=== PATIENT | female | born 1940 | race Caucasian/White ===

== ENCOUNTER → 2016-09-02 | Outpatient (CLI) | payer BC ==
[~2016-09-02] MED LIST: ASPI81TA28 PO; ESTR0.3T PO; FENO67CA2 PO; MULT-190 PO; PROG100C6 PO
[2016-09-02 10:56] LABS: BASO % 0.5 %; BASO ABS # 0.03 K/uL (0-0.2); COMPLETE YES; EOS % 4.1 %; HEMATOCRIT 44.7 % (37-47); IG% 0.2 %; LYMPH % 29.8 %; LYMPH ABS # 1.97 K/uL (1.2-3.4); MEAN CELL VOLUME 97.4 fL (80-100); MEAN CORPUSCULAR HEMOGLOBIN 32.5 pg (25-34); MEAN CORPUSCULAR HGB CONC 33.3 g/dl (32-36); MEAN PLATELET VOLUME 9.9 fL (7.4-10.4); MONO % 7.6 %; NEUT % 57.8 %; PLATELET COUNT 387 K/uL (130-400); RED BLOOD COUNT 4.59 M/uL (4.2-5.4); WHITE BLOOD COUNT 6.62 K/uL (4.8-10.8)
[2016-09-02 11:05] LABS: ALT/SGPT 32 U/L (12-78); AST/SGOT 23 U/L (15-37); BLOOD UREA NITROGEN 10 mg/dl (7-18); BUN/CREATININE RATIO 14.9 (10-20); CALCIUM 9.2 mg/dl (8.5-10.1); CARBON DIOXIDE 30 mmol/L (21-32); CHLORIDE 100 mmol/L (98-107); CREATININE 0.64 mg/dl (0.60-1.20); GLUCOSE 93 mg/dl (70-99); POTASSIUM 4.1 mmol/L (3.5-5.1); SODIUM 135 mmol/L (136-145)
[2016-09-02 11:07] LABS: ALKALINE PHOSPHATASE 104 U/L (45-117); CHOLESTEROL 285 mg/dl (0-200); CHOLESTEROL/HDL RATIO 2.7; HDL CHOLESTEROL 105 mg/dl; LDL CHOLESTEROL CALCULATED 140 mg/dl; TRIGLYCERIDES 198 mg/dl (0-150); VERY LOW DENSITY LIPOPROT CALC 40 mg/dl
== END | disposition home or self-care (01) ==
LOC: C.LABBC 08:24
PROVIDERS: ATTEND Family Medicine
DX: N95.1 Menopausal and female climacteric states (principal); E55.9 Vitamin D deficiency, unspecified; E78.5 Hyperlipidemia, unspecified

== ENCOUNTER → 2016-10-27 | Outpatient (CLI) | payer BC ==
--- NOTE | 2016-10-27 15:18 | MAMMOGRAPHY REPORT ---
BILATERAL DIGITAL SCREENING MAMMOGRAM WITH CAD: 10/27/2016 CLINICAL HISTORY: Routine screening. Patient has no complaints. TECHNIQUE: Bilateral CC and MLO views were obtained. Current study was also evaluated with a Compute r Aided Detection (CAD) system. COMPARISON: Comparison is made to exams dated: 10/25/2015 mammogram, 10/17/2014 mammogram, 10/07/2012 u ltrasound, 10/07/2012 mammogram, 10/02/2011 mammogram - [facility], and 01/25/2008. BREAST COMPOSITION: There are scattered areas of fibroglandular density in both breasts. FINDINGS: There are a few stable benign-appearing calcifications and punctate microcalcifications in the breasts. Mild vascular calcification. No suspicious mass, architectural distortion or cluster o f suspicious microcalcifications is seen. IMPRESSION: ACR BI-RADS CATEGORY 1: NEGATIVE There is no mammographic evidence of malignancy. A 1 year screening mammogram is recommended. The pa tient will receive written notification of the results. Approximately 10% of breast cancers are not detected with mammography. A negative mammographic report should not delay biopsy if a clinically suggestive mass is present. Mary Will M.D. ay/:10/27/2016 12:49:27 It Technician: Teena ROQUE(R)(M), [facility] letter sent: Normal 1/2 BI-RADS Code: ACR BI-RADS Category 1: Negative
== END | disposition home or self-care (01) ==
LOC: C.MAMM 10:29
PROVIDERS: ATTEND Physician Assistant Medical
DX: Z12.31 Encounter for screening mammogram for malignant neoplasm of breast (principal)

== ENCOUNTER → 2017-09-04 | Outpatient (CLI) | payer BC ==
[2017-09-04 10:48] LABS: BLOOD UREA NITROGEN 8 mg/dl (7-18); CREATININE 0.68 mg/dl (0.60-1.20); GLUCOSE 90 mg/dl (70-99)
[2017-09-04 10:49] LABS: ALBUMIN 3.6 gm/dl (3.4-5.0); ALT/SGPT 20 U/L (12-78); AST/SGOT 19 U/L (15-37); CALCIUM 8.8 mg/dl (8.5-10.1); CARBON DIOXIDE 30 mmol/L (21-32); CHOLESTEROL 228 mg/dl (0-200); POTASSIUM 4.2 mmol/L (3.5-5.1); SODIUM 135 mmol/L (136-145)
[2017-09-04 10:52] LABS: ALKALINE PHOSPHATASE 72 U/L (45-117); LDL CHOLESTEROL CALCULATED 108 mg/dl; TOTAL PROTEIN 6.9 gm/dl (6.4-8.2)
== END | disposition home or self-care (01) ==
LOC: C.LABBC 08:11
PROVIDERS: ATTEND Nurse Practitioner Adult Health
DX: E78.5 Hyperlipidemia, unspecified (principal); E55.9 Vitamin D deficiency, unspecified

== ENCOUNTER → 2017-11-27 | Outpatient (CLI) | payer BC ==
--- NOTE | 2017-11-27 14:36 | MAMMOGRAPHY REPORT ---
UNILATERAL RIGHT DIGITAL DIAGNOSTIC MAMMOGRAM TOMOSYNTHESIS AND TARGETED LEFT ULTRASOUND: 11/27/2017 CLINICAL HISTORY: Callback from screening mammogram for possible right breast architectural distortio n and left breast mass. Left mass. TECHNIQUE: The study was acquired using full field digital technology and interpreted from soft copy. Breast tomosynthesis in addition to standard 2D mammography was performed. Spot compression right c c and focal right XCCL 2D and tomosynthesis images were obtained. COMPARISON: Comparison is made to exams dated: 11/06/2017 mammogram, 10/27/2016 mammogram, 10/25/2015 ma mmogram, 10/17/2014 mammogram, and 10/07/2012 mammogram - [facility]. BREAST COMPOSITION: There are scattered areas of fibroglandular density in right breast. FINDINGS: The previously described possible architectural distortion within the right lateral posterior breast seen on the CC view effaces on the additional images. Normal fibroglandular tissue is seen in this r egion, without evidence of a suspicious mass, architectural distortion, or other suspicious finding. Targeted ultrasound was performed of the left upper outer quadrant to evaluate the partially circumsc ribed 16 mm mass seen within the left upper outer quadrant on recent screening mammogram. In the lef t 2:00 breast, approximately 4 cm from the nipple, there is a circumscribed anechoic mass with vending service technician ior acoustic enhancement which measures 1.6 x 0.7 x 1.1 cm. This corresponds with the mammographic m ass and is consistent with a benign cyst. IMPRESSION: ACR BI-RADS CATEGORY 2: BENIGN, ULTRASOUND ACR BI-RADS CATEGORY 2: BENIGN 1. No persistent architectural distortion seen within the right breast on the additional views. Fin dings are benign and compatible with normal fibroglandular tissue. 2. Benign 1.6 cm cyst in the left 2:00 breast on ultrasound, which corresponds with the partially ci rcumscribed mammographic mass. There is no mammographic or sonographic evidence of malignancy. A 1 year screening mammogram is recom mended.(11/28/2018) The patient has been verbally notified of the results. Some breast cancers are not detected with mammography. A negative mammographic report should not oren y biopsy if a clinically suggestive mass is present. Jayla Brooke M.D. /:11/27/2017 09:19:01 K 12 Principal: Teena Taylor RT(R)(M), [facility] letter sent: Normal 04/28 OVERALL STUDY BIRADS: 2 Benign
== END | disposition home or self-care (01) ==
LOC: C.MAMM 08:45
PROVIDERS: ATTEND Nurse Practitioner Adult Health
DX: N63.20 Unspecified lump in the left breast, unspecified quadrant (principal); N64.89 Other specified disorders of breast

== ENCOUNTER 2023-06-02 11:50 | Inpatient (IN) ==
[2023-06-02 12:30] LABS: Basophils # (auto) 0.03 K/uL (0.00-0.20); Basophils % (auto) 0.4 %; Eosinophils # (auto) 0.18 K/uL (0.00-0.50); Eosinophils % (auto) 2.4 %; Hematocrit (blood only) 44.3 % (37.0-47.0); Hemoglobin 14.9 g/dl (12.0-16.0); Immature Granulocytes # (auto) 0.02 K/uL (0.01-0.20); Immature Granulocytes % (auto) 0.3 %; Lymphocytes # (auto) 2.32 K/uL (1.20-3.40); Lymphocytes % (auto) 31.2 %; Mean Corpuscular Hemoglobin 31.6 pg (25.0-34.0); Mean Corpuscular Hgb Conc 33.6 g/dL (32.0-36.0); Mean Corpuscular Volume 94.1 fL (80.0-100.0); Mean Platelet Volume 9.3 fL (9.4-12.4); Monocytes # (auto) 0.54 K/uL (0.11-0.59); Monocytes % (auto) 7.3 %; Neutrophils # (auto) 4.34 K/uL (1.40-6.50); Neutrophils % (auto) 58.4 %; Platelet Count 349 K/uL (130-400); RDW Coefficient of Variation 12.6 % (11.5-14.5); RDW Standard Deviation 43.8 fL (36.4-46.3); Red Blood Count 4.71 M/uL (4.20-5.40); White Blood Count 7.43 K/ul (4.8-10.8)
--- NOTE | 2023-06-02 12:40 | XRay Report ---
XR chest 1V not portable CLINICAL HISTORY: Chest pain, nonspecific COMPARISON STUDY: No previous studies for comparison. FINDINGS: Lung volumes are normal. Lungs are clear. There is no pneumothorax or pleural effusion. Car diac size is normal. Mediastinal contours are normal. There is no evidence for pulmonary edema. IMPRESSION: No acute cardiopulmonary findings. ACT 112: Negative or not required by law. Electronically signed by: Alex Cross M.D. 06/02/2023 12:39 PM
[2023-06-02 12:49] LABS: Albumin Globulin Ratio 1.4 (0.9-2); Albumin Level 4.1 gm/dl (3.4-5.0); BUN Creatinine Ratio 20.3 (10-20); Bilirubin,Total 0.5 mg/dl (0.2-1.0); Calcium 9.7 mg/dl (8.6-10.3); Creatinine Clr Calc Pharmacy 55.8 ml/min; Est GFR (African American) 92.6 ml/min; Est GFR (Non-African American) 79.9 ml/min; Potassium 4.1 mmol/L (3.5-5.1); Total Protein 7.1 gm/dl (6.0-8.3)
[2023-06-02 13:00] LABS: INR 0.9 (0.9-1.1); Partial Thromboplastin Ratio 0.9; Partial Thromboplastin Time 25 Seconds (21-31); Prothrombin Time 10.3 Seconds (9.0-12.0)
[2023-06-02 13:01] LABS: Troponin I High Sensitivity 66.6 pg/ml (0-14)
[2023-06-02] MEDS: OPTIRAY 320 125ml IV ONE (13:50)
--- NOTE | 2023-06-02 14:07 | CT Scan Report ---
CT head/brain wo con CLINICAL HISTORY: 83 years-old Female with dizzy, htn, nolen. Acute headache with dizziness TECHNIQUE: Multiple axial CT images of the head were obtained without contrast. A dose lowering tech nique was utilized adhering to the principles of ALARA. COMPARISON: CTA head and neck same day FINDINGS: No acute intracranial hemorrhage, midline shift, intracranial mass, hydrocephalus, territorial ischem ia or abnormal extra-axial collection. Involutional changes with chronic microvascular ischemic disea se. The calvarium is intact. The paranasal sinuses, mastoid air cells, and middle ear cavities are clear . IMPRESSION: No acute intracranial abnormality. ACT 112: Negative or not required by law. The above report was generated using voice recognition software. It may contain grammatical, syntax o r spelling errors. Electronically signed by: Leodan Verma M.D. 06/02/2023 2:05 PM
[2023-06-02] MEDS: SODIUM CHLORIDE 0.9% 1,000 ML IV SCH (14:16)
--- NOTE | 2023-06-02 14:18 | CT Scan Report ---
HEAD & NECK CTA HISTORY: dizzy, htn, headache TECHNIQUE: Multiaxial CT images of the head were performed following the intravenous administration o f contrast to evaluate the major cerebral vessels. Multiaxial CT images of the neck were also perform ed following the intravenous administration of contrast to evaluate the major cervical vessels. 3D/IN P images were also obtained. Sagittal and coronal reformats were reviewed. A dose lowering technique was utilized adhering to the principles of ALARA. COMPARISON: None. FINDINGS: Visualized intracranial internal carotid arteries, distal vertebral arteries, and basilar artery are widely patent. There is no significant stenosis, occlusion, or aneurysm seen within the bilateral ALINA s, MCAs, or left SPECIAL INVESTIGATION UNIT INVESTIGATOR. Hypoplastic distal right vertebral artery. There is a persistent right posterio r circulation. Mild to moderate multifocal narrowing within the right posterior to indicate art george with an abrupt occlusion within the mid P2 segment of the right SPECIAL INVESTIGATION UNIT INVESTIGATOR.. The major dural venous sinu ses are patent. The aortic arch and proximal great vessels are widely patent. There is no significant stenosis, occ lusion, or dissection identified within the bilateral common carotid, internal carotid, or vertebral arteries. Mild calcified plaque within the bilateral carotid bifurcations. There is a hypoplastic rig ht vertebral artery. IMPRESSION: 1. An abrupt occlusion within the mid P2 segment of the right SPECIAL INVESTIGATION UNIT INVESTIGATOR. This is age indeterminate but coul d represent an acute right SPECIAL INVESTIGATION UNIT INVESTIGATOR territory infarct. Clinical correlation recommended. 2. No significant stenosis, occlusion, or dissection identified within the carotid or vertebral arter ies. ACT 112: Negative or not required by law. Electronically signed by: Darrin Mc M.D. 06/02/2023 2:17 PM
--- NOTE | 2023-06-02 14:18 | CT Scan Report ---
HEAD & NECK CTA HISTORY: dizzy, htn, headache TECHNIQUE: Multiaxial CT images of the head were performed following the intravenous administration o f contrast to evaluate the major cerebral vessels. Multiaxial CT images of the neck were also perform ed following the intravenous administration of contrast to evaluate the major cervical vessels. 3D/[place] P images were also obtained. Sagittal and coronal reformats were reviewed. A dose lowering technique was utilized adhering to the principles of ALARA. COMPARISON: None. FINDINGS: Visualized intracranial internal carotid arteries, distal vertebral arteries, and basilar artery are widely patent. There is no significant stenosis, occlusion, or aneurysm seen within the bilateral ALINA s, MCAs, or left COMMERCIAL FISHERMAN. Hypoplastic distal right vertebral artery. There is a persistent right posterio r circulation. Mild to moderate multifocal narrowing within the right posterior to indicate art george with an abrupt occlusion within the mid P2 segment of the right COMMERCIAL FISHERMAN.. The major dural venous sinu ses are patent. The aortic arch and proximal great vessels are widely patent. There is no significant stenosis, occ lusion, or dissection identified within the bilateral common carotid, internal carotid, or vertebral arteries. Mild calcified plaque within the bilateral carotid bifurcations. There is a hypoplastic rig ht vertebral artery. IMPRESSION: 1. An abrupt occlusion within the mid P2 segment of the right COMMERCIAL FISHERMAN. This is age indeterminate but coul d represent an acute right COMMERCIAL FISHERMAN territory infarct. Clinical correlation recommended. 2. No significant stenosis, occlusion, or dissection identified within the carotid or vertebral arter ies. ACT 112: Negative or not required by law. Electronically signed by: Darrin Mc M.D. 06/02/2023 2:17 PM
--- NOTE | 2023-06-02 14:36 | Electrocardiogram Report ---
Test Reason : Blood Pressure : / mmHG Vent. Rate : 089 BPM Atrial Rate : 089 BPM P-R Int : 138 ms QRS Dur : 080 ms QT Int : 328 ms P-R-T Axes : 049 -06 258 degrees QTc Int : 399 ms Sinus rhythm with Premature atrial complexes with Aberrant conduction Left atrial enlargement Left ventricular hypertrophy with repolarization abnormality Abnormal ECG No previous ECGs available Confirmed by Pramod Dimas ([id number]) on 06/02/2023 2:36:17 PM Referred By: Confirmed By:Pramod Dimas
--- NOTE | 2023-06-02 14:40 | Emergency Department Note ---
Impression & Plan Dizziness, Acute CVA (cerebrovascular accident), Hyperglycemia, Elevated troponin ED Provider Note ED Provider Note NAME: MAYKEL LAWSON AGE:83 SEX: Female : 1940 ARRIVES VIA: private vehicle INFORMANT: Patient ED PROVIDER(s): Lois Zaidi DO CHIEF COMPLAINT: Dizziness HPI: This is an 83-year-old female who presents emergency department due to abrupt onset of dizziness at around 10 AM this morning. Patient states she did have a few milder episodes of vertigo last week and does have prior history of vertigo. She states she did use an Radha maneuver that she knows how to do at home last week with some improvement. She states she got up this morning and was feeling well, ate and took normal medications and was walking around her condo when she suddenly became acutely dizzy. She states she was able to sit down on a chair to prevent falling. She denies any coming headaches, vision changes, tinnitus, chest pain, palpitations, shortness of breath, nausea or vomiting. She denies any recent fevers, chills, or recent illness. She denies any change in urine or stools. She denies any change in medications. She states after sitting there a while her dizziness did mostly improve although she still does not feel totally resolved. PAST MEDICAL HISTORY:See Below PAST SURGICAL HISTORY:See Below FAMILY HISTORY:See Below SOCIAL HISTORY:See Below HOME MEDICATIONS:See Below ALLERGIES:See Below VITALS:See Below PHYSICAL EXAMINATION: GENERAL: alert, well appearing, well nourished, no distress, non-toxic EYE EXAM: normal conjunctiva, PERRL and EOM's grossly intact, no nystagmus OROPHARYNX: no exudate, no erythema, lips, buccal mucosa, and tongue normal and mucous membranes are moist NECK: supple, no nuchal rigidity, no adenopathy, non-tender LUNGS: Clear to auscultation. Normal chest wall mechanics, no w/r/r HEART: no murmurs, S1 normal and S2 normal ABDOMEN: abdomen soft, non-tender, normo-active bowel sounds, no masses, no rebound or guarding. BACK: Back is symmetrical on inspection and there is no deformity, no midline tenderness, no CVA tenderness. SKIN: no rashes, petechiae, orbruising UPPER EXTREMITIES: upper extremities are grossly normal. FROM, nml pulses b/l. LOWER EXTREMITIES: No pitting edema. FROM, nml pulses b/l. NEURO EXAM: Normal sensorium, cranial nerves II-XII grossly intact, normal speech, no facial droop,nogross weakness of arms, no gross weakness of legs. Gross sensation intact. No ataxia. NIHSS 0. Vital Signs: reviewed and remarkable Differential Diagnosis: benign positional vertigo, dehydration, hypovolemia, anemia, tumor, hypoglycemia, electrolyte abnormalities, ICH, CVA, dysrhythmia, as well as others were entertained. MEDICAL DECISION MAKING: This is an 83-year-old female presents emergency department after abrupt onset of severe dizziness this morning while at home. No accompanying trauma, she had no other complaints or concurrent symptoms. Her symptoms were almost entirely resolved by the time of presentation to the emergency room. Labs drawn and sent, IV established, EKG and chest x-ray performed bedside interpreted by me and patient sent for CT/CTA due to advanced age and reported symptoms. Patient found to have hyperglycemia, new compared to prior and no prior diagnosis of diabetes. Patient also found to have an elevated troponin and abnormal EKG despite no complaints of chest pain, shortness of breath, or palpitations. CT angiography showed likely acute right ELECTRONICS MAINTENANCE TECHNICIAN infarct. Patient did have recent episodes of vertigo last week and does have prior history of vertigo it seems today was more severe and atypical. No prior documentation of stroke and patient denies any knowledge of prior stroke. I did contact on-call [facility] who did a bedside evaluation utilizing the stroke cart. I also discussed the case with the [facility] hospitalist team. The neurologist did recontact to provide their additional input which was relayed to the hospitalist at that time. Patient was noted to be hypertensive here although did have some fluctuation in her blood pressure. We did discuss blood pressure parameters. Patient updated on all results and need for additional inpatient evaluation, she verbalized understanding was in agreement. Consultation(s): 5910: Discussed with Dr. Rajan, [facility], he will review the images and perform a bedside evaluation utilizing the cart. 151: Discussed with Dr. Das, [facility] hospitalist, for additional evaluation and mgmt. 1626: Discussed with Dr. Rajan again. Unclear for acute CVA. No indication for TNK and not amenable to additional interventions at this time. Recommends additional inpatient evaluation including additional labs, TTE and MRI as well as permissive hypertension today. Recommend starting aspirin 325 mg today and then to be continued on 81 mg daily. This was discussed with the hospitalist additionally. ER Treatment Provided: See below Diagnostics Interpreted By Me: -ECG: Normal sinus at 89, normal axis, normal intervals, PACs noted, ST depression noted in 1, 2, and V6 with T wave inversions in lead III, aVF, and V6 -Cardiac Monitoring: An order was placed for continuous cardiac monitoring. The monitor shows a rate of 76 with normal sinus rhythm. -Laboratory studies: As stated above and show below. -Imaging studies: X-ray Chest: A single view study of the chest was reviewed and was negative for cardiomegaly, focal infiltrate, effusion, pulmonary edema, or wide mediastinum. Triage Nursing Note Reviewed Prior/Outside Records Reviewed -prior PCP office visit reviewed Critical care: Critical care of 48 min performed to assess and manage high likelihood of life- threatening CVA, involving labs and imaging performed with assessment to evaluate dizziness diagnosis with frequent reassessment. This time includes bedside time, treatment discussions with patient/family/consultants, documentation time and excludes procedure time. Past Med/Surg History Surgical History History of endoscopy History of colonoscopy History of oral surgery History of breast lump/mass excision right Family History Mother Myocardial infarction Father Myocardial infarction Brother Myocardial infarction Denies family history of Ovarian cancer Prostate cancer Breast cancer Colorectal cancer Social History Smoking Status: Never smoker Tobacco Type: Cigarettes packs per day: 1; Second Hand Exposure: No; Do You Dip or Chew Tobacco: No; Hx Alcohol Use: Yes Alcohol type: wine and hard liquor Alcohol Intake Frequency: 4 or More x per/Week Hx Substance Use: No Preferred Language: Malay Communication Ability: Effective marital status: / Current Living Situation: Alone current occupational status: retired How many Children do You have: 2 Feels Safe at Home: Yes Childhood Exposure to Second-Hand Smoke: No caffeine: Yes (1 cup of coffee) Dental Care, Regularly: Yes Physical Activity Frequency: 3-4 Times per Week Seatbelt Use: always Sunscreen Use: Yes Allergies Allergies Allergy/AdvReac Type Severity Reaction Status Date / Time bacitracin Allergy Unknown RED RASH Verified 02/13/23 09:29 polymyxin B Allergy Unknown RED RASH Verified 02/13/23 09:29 pads AdvReac Mild Rash Uncoded 02/13/23 09:29 Home Meds Home Medications Medication Instructions Recorded Confirmed cholecalciferol (vitamin D3) 50 50 mcg PO DAILY 02/12/22 06/02/23 mcg (2,000 unit) capsule levomefolate 500 mcg-niacinamide 1 tab PO DAILY 02/12/22 06/02/23 750 [id number]-Fj-selen-chrom tablet (Nicotinamide (with chromium)) propylene glycol 0.6 % eye drops 1 drp ophthalmic (eye) DAILY PRN 02/13/23 06/02/23 (Systane Balance) Dry Eye(S) Previous Rx's Medication Instructions Recorded losartan 25 mg tablet 25 mg PO DAILY #90 tabs 02/13/23 Results & Data (ED) Vital Signs Vital Signs - 24 hr 06/02/23 12:00 06/02/23 13:20 06/02/23 13:20 Temperature 36.7 C Temperature Source Temporal Artery Scan Pulse Rate 91 H Pulse Rate from SpO2 Sensor Respiratory Rate 16 Respiratory Effort / Characteristics Non-Labored Spontaneous Respiratory Depth Normal Respiratory Pattern Regular Blood Pressure 183/115 H Blood Pressure Mean 137 Blood Pressure Position Sitting Pulse Oximetry 97 Oxygen Delivery Method Room Air Room Air Room Air Sepsis Recent Fever Within 48 Hours No Sepsis New/Unexplained Change in Mental Status N/A Sepsis Action Taken by Nursing No Action Required 06/02/23 13:20 06/02/23 13:28 06/02/23 13:30 Temperature Temperature Source Pulse Rate 77 Pulse Rate from SpO2 Sensor 75 Respiratory Rate 15 Respiratory Effort / Characteristics Respiratory Depth Respiratory Pattern Blood Pressure 201/96 H Blood Pressure Mean 131 Blood Pressure Position Pulse Oximetry 97 Oxygen Delivery Method Room Air Sepsis Recent Fever Within 48 Hours Sepsis New/Unexplained Change in Mental Status Sepsis Action Taken by Nursing 06/02/23 13:30 06/02/23 13:32 06/02/23 13:57 Temperature Temperature Source Pulse Rate 75 74 Pulse Rate from SpO2 Sensor 75 Respiratory Rate 16 Respiratory Effort / Characteristics Respiratory Depth Respiratory Pattern Blood Pressure 189/116 H Blood Pressure Mean 145 Blood Pressure Position Pulse Oximetry 97 Oxygen Delivery Method Sepsis Recent Fever Within 48 Hours Sepsis New/Unexplained Change in Mental Status Sepsis Action Taken by Nursing 06/02/23 13:57 06/02/23 14:00 06/02/23 14:00 Temperature Temperature Source Pulse Rate 86 83 Pulse Rate from SpO2 Sensor Respiratory Rate 23 9 L Respiratory Effort / Characteristics Respiratory Depth Respiratory Pattern Blood Pressure 174/95 H Blood Pressure Mean 133 Blood Pressure Position Pulse Oximetry Oxygen Delivery Method Sepsis Recent Fever Within 48 Hours Sepsis New/Unexplained Change in Mental Status Sepsis Action Taken by Nursing 06/02/23 14:37 06/02/23 14:37 06/02/23 15:00 Temperature Temperature Source Pulse Rate 83 80 Pulse Rate from SpO2 Sensor 86 81 Respiratory Rate 10 L 13 Respiratory Effort / Characteristics Respiratory Depth Respiratory Pattern Blood Pressure 191/81 H Blood Pressure Mean 99 Blood Pressure Position Pulse Oximetry 98 95 Oxygen Delivery Method Room Air Room Air Sepsis Recent Fever Within 48 Hours Sepsis New/Unexplained Change in Mental Status Sepsis Action Taken by Nursing 06/02/23 15:00 06/02/23 15:30 06/02/23 15:31 Temperature Temperature Source Pulse Rate Pulse Rate from SpO2 Sensor 98 H 96 H Respiratory Rate Respiratory Effort / Characteristics Respiratory Depth Respiratory Pattern Blood Pressure 164/110 H Blood Pressure Mean 118 Blood Pressure Position Pulse Oximetry 97 98 Oxygen Delivery Method Room Air Room Air Sepsis Recent Fever Within 48 Hours Sepsis New/Unexplained Change in Mental Status Sepsis Action Taken by Nursing 06/02/23 15:31 06/02/23 15:36 06/02/23 15:36 Temperature Temperature Source Pulse Rate Pulse Rate from SpO2 Sensor 78 Respiratory Rate Respiratory Effort / Characteristics Respiratory Depth Respiratory Pattern Blood Pressure 207/114 H 219/94 H Blood Pressure Mean 138 126 Blood Pressure Position Pulse Oximetry 97 Oxygen Delivery Method Room Air Sepsis Recent Fever Within 48 Hours Sepsis New/Unexplained Change in Mental Status Sepsis Action Taken by Nursing Laboratory Data 06/02/23 12:08 06/02/23 12:08 Lab Results 06/02/23 06/02/23 Range/Units 12:08 14:08 WBC 7.43 (4.8-10.8) K/ul RBC 4.71 (4.20-5.40) M/uL Hgb 14.9 (12.0-16.0) g/dl Hct 44.3 (37.0-47.0) % MCV 94.1 (80.0-100.0) fL MCH 31.6 (25.0-34.0) pg MCHC 33.6 (32.0-36.0) g/dL RDW Std Deviation 43.8 (36.4-46.3) fL RDW Coeff of Cristian 12.6 (11.5-14.5) % Plt Count 349 (130-400) K/uL MPV 9.3 L (9.4-12.4) fL Immature Gran % (Auto) 0.3 % Neut % (Auto) 58.4 % Lymph % (Auto) 31.2 % [place] % (Auto) 7.3 % Eos % (Auto) 2.4 % Baso % (Auto) 0.4 % Neut # (Auto) 4.34 (1.40-6.50) K/uL Lymph # (Auto) 2.32 (1.20-3.40) K/uL [place] # (Auto) 0.54 (0.11-0.59) K/uL Eos # (Auto) 0.18 (0.00-0.50) K/uL Baso # (Auto) 0.03 (0.00-0.20) K/uL Immature Gran # (Auto) 0.02 (0.01-0.20) K/uL PT 10.3 (9.0-12.0) Seconds INR 0.9 (0.9-1.1) APTT 25 (21-31) Seconds PTT Ratio 0.9 Sodium 134 L (136-145) mmol/L Potassium 4.1 (3.5-5.1) mmol/L Chloride 98 (98-107) mmol/L Carbon Dioxide 28 (21-32) mmol/L Anion Gap 8 (3-11) BUN 14 (6-23) mg/dl Creatinine 0.69 (0.6-1.2) mg/dl Est Cr Clr Drug Dosing 55.8 ml/min Est GFR ( Amer) 92.6 ml/min Est GFR (Non-Af Amer) 79.9 ml/min BUN/Creatinine Ratio 20.3 H (10-20) Glucose 219 H (70-99(Fasting)) mg/dl Calcium 9.7 (8.6-10.3) mg/dl Total Bilirubin 0.5 (0.2-1.0) mg/dl AST 22 (13-39) U/L ALT 15 (7-52) U/L Alkaline Phosphatase 75 (34-104) U/L Troponin I High Sens 66.6 H* 61.5 H* (0-14) pg/ml Total Protein 7.1 (6.0-8.3) gm/dl Albumin 4.1 (3.4-5.0) gm/dl Globulin 3.0 (2.5-4.0) gm/dl Albumin/Globulin Ratio 1.4 (0.9-2) Administered Medications Sodium Chloride (Nss) 1,000 mls @ 125 mls/hr IV .Q8H YUNG Stop: 07/02/23 13:29 Last Admin: 06/02/23 14:16 Dose: 125 mls/hr Documented By: RAKESH Discontinued Medications Ioversol (Optiray 320 125ml) 116 ml IV ONCE ONE Stop: 06/02/23 13:54 Last Admin: 06/02/23 13:50 Dose: 116 ml Documented By: MELANIA Imaging Data Radiologist's Impression: Chest X-Ray 06/02/23 12:05 XR chest 1V not portable CLINICAL HISTORY: Chest pain, nonspecific COMPARISON STUDY: No previous studies for comparison. FINDINGS: Lung volumes are normal. Lungs are clear. There is no pneumothorax or pleural effusion. Cardiac size is normal. Mediastinal contours are normal. There is no evidence for pulmonary edema. IMPRESSION: No acute cardiopulmonary findings. ACT 112: Negative or not required by law. Electronically signed by: Alex Cross M.D. 06/02/2023 12:[address] 06/02/23 13:29 CT head/brain wo con CLINICAL HISTORY: 83 years-old Female with dizzy, htn, nolen. Acute headache with dizziness TECHNIQUE: Multiple axial CT images of the head were obtained without contrast. A dose lowering technique was utilized adhering to the principles of ALARA. COMPARISON: CTA head and neck same day FINDINGS: No acute intracranial hemorrhage, midline shift, intracranial mass, hydrocephalus, territorial ischemia or abnormal extra-axial collection. Involutional changes with chronic microvascular ischemic disease. The calvarium is intact. The paranasal sinuses, mastoid air cells, and middle ear cavities are clear. IMPRESSION: No acute intracranial abnormality. ACT 112: Negative or not required by law. The above report was generated using voice recognition software. It may contain grammatical, syntax or spelling errors. Electronically signed by: Leodan Verma M.D. 06/02/2023 2:05 PM Head CTA 06/02/23 13:29 HEAD & NECK CTA HISTORY: dizzy, htn, headache TECHNIQUE: Multiaxial CT images of the head were performed following the intravenous administration of contrast to evaluate the major cerebral vessels. Multiaxial CT images of the neck were also performed following the intravenous administration of contrast to evaluate the major cervical vessels. 3D/MIP images were also obtained. Sagittal and coronal reformats were reviewed. A dose lowering technique was utilized adhering to the principles of ALARA. COMPARISON: None. FINDINGS: Visualized intracranial internal carotid arteries, distal vertebral arteries, and basilar artery are widely patent. There is no significant stenosis, occlusion, or aneurysm seen within the bilateral ACAs, MCAs, or left ELECTRONICS MAINTENANCE TECHNICIAN. Hypoplastic distal right vertebral artery. There is a persistent right posterior circulation. Mild to moderate multifocal narrowing within the right posterior to indicate artery with an abrupt occlusion within the mid P2 segment of the right ELECTRONICS MAINTENANCE TECHNICIAN.. The major dural venous sinuses are patent. The aortic arch and proximal great vessels are widely patent. There is no significant stenosis, occlusion, or dissection identified within the bilateral common carotid, internal carotid, or vertebral arteries. Mild calcified plaque within the bilateral carotid bifurcations. There is a hypoplastic right vertebral artery. IMPRESSION: 1. An abrupt occlusion within the mid P2 segment of the right ELECTRONICS MAINTENANCE TECHNICIAN. This is age indeterminate but could represent an acute right ELECTRONICS MAINTENANCE TECHNICIAN territory infarct. Clinical correlation recommended. 2. No significant stenosis, occlusion, or dissection identified within the carotid or vertebral arteries. ACT 112: Negative or not required by law. Electronically signed by: Darrin Mc M.D. 06/02/2023 2:17 PM Neck CTA 06/02/23 13:29 HEAD & NECK CTA HISTORY: dizzy, htn, headache TECHNIQUE: Multiaxial CT images of the head were performed following the intravenous administration of contrast to evaluate the major cerebral vessels. Multiaxial CT images of the neck were also performed following the intravenous administration of contrast to evaluate the major cervical vessels. 3D/MIP images were also obtained. Sagittal and coronal reformats were reviewed. A dose lowering technique was utilized adhering to the principles of ALARA. COMPARISON: None. FINDINGS: Visualized intracranial internal carotid arteries, distal vertebral arteries, and basilar artery are widely patent. There is no significant stenosis, occlusion, or aneurysm seen within the bilateral ACAs, MCAs, or left ELECTRONICS MAINTENANCE TECHNICIAN. Hypoplastic distal right vertebral artery. There is a persistent right posterior circulation. Mild to moderate multifocal narrowing within the right posterior to indicate artery with an abrupt occlusion within the mid P2 segment of the right ELECTRONICS MAINTENANCE TECHNICIAN.. The major dural venous sinuses are patent. The aortic arch and proximal great vessels are widely patent. There is no significant stenosis, occlusion, or dissection identified within the bilateral common carotid, internal carotid, or vertebral arteries. Mild calcified plaque within the bilateral carotid bifurcations. There is a hypoplastic right vertebral artery. IMPRESSION: 1. An abrupt occlusion within the mid P2 segment of the right ELECTRONICS MAINTENANCE TECHNICIAN. This is age indeterminate but could represent an acute right ELECTRONICS MAINTENANCE TECHNICIAN territory infarct. Clinical correlation recommended. 2. No significant stenosis, occlusion, or dissection identified within the carotid or vertebral arteries. ACT 112: Negative or not required by law. Electronically signed by: Darrin Mc M.D. 06/02/2023 2:17 PM Discharge Plan Visit Data Chief Complaint: Dizziness Stated Complaint: dizziness ED Provider: Lois Zaidi Discharge Problem: Dizziness, Acute CVA (cerebrovascular accident), Hyperglycemia, Elevated troponin Forms Stand Alone Forms: [facility] Prescriptions Prescriptions: No Action cholecalciferol (vitamin D3) 50 mcg (2,000 unit) capsule 50 mcg PO DAILY Nicotinamide (with chromium) 500 mcg- 750 mg tablet 1 tab PO DAILY Systane Balance 0.6 % drops 1 drp ophthalmic (eye) DAILY PRN (Reason: Dry Eye(S)) losartan 25 mg tablet 25 mg PO DAILY Qty: 90 3RF Referrals Referrals: Musa Gutierrez CRNP [Primary Care Provider] -
--- NOTE | 2023-06-02 15:38 | History & Physical Report ---
Date of Service June 02, 2023 Assessment & Plan (1) Acute CVA (cerebrovascular accident): Plan: Acute right SKIN CARE THERAPIST stroke Right P2 acute occlusion, consistent with posterior stroke presenting as dizziness Symptoms almost completely resolved at time of bedside assessment Troponin with mild epilation of 66 downtrending on recheck and no chest pain Hypertensive at 160/110 at time of evaluation Permissive hypertension x 24 hours for acute CVA. Losartan held -Case was discussed with telestroke neurology. Recommended maintaining blood pressure around 180, will lower permissive hypertension parameters to give labetalol for pressure greater than 200. Recommended full dose aspirin which has been ordered and daily aspirin 81 mg moving forward Admitted to PCU with labetalol on-call for SBP greater than 220/110 PT/OT/CM consulted MRI pending Aspirin 81 mg daily, atorvastatin 40 mg added adjust as needed based on morning lipid panel which is pending A1c pending, BSG 219 on admission. Sliding scale ordered goal range [id number] (2) Hyperlipidemia: Plan: Statin as noted, lipid panel pending (3) Hypertension: Plan: Hypertension Home losartan held for permissive hypertension on admission (4) Elevated troponin: Plan: Minimally elevated, downtrending. Suspect due to hypertension following CVA. No chest pain, no ischemic EKG changes. Followed on PCU. Echo pending (5) Hyperglycemia: Plan: Hyperglycemia No A1c available, this is pending Weight-based SSI ordered goal range 159160 DM 2, heart healthy diet Plan DVT prophylaxis: Lovenox Disposition: PCU CODE STATUS: Full code Diet: Heart healthy, consistent carb once able to pass bedside swallow eval History of Present Illness Primary Care Provider: SENA Bragg And is an 83-year-old female with a past medical history of hypertension, hyperlipidemia who presents with dizziness which has improved at time of ER assessment although remain with a vague feeling of being 'off'. NIHSS 0 at assessment. She underwent a CThead and CTA of the head and neck which revealed a mid P2 right SKIN CARE THERAPIST segment occlusion suspected acute right SKIN CARE THERAPIST territory CVA. Telestroke at [facility] [place] was consulted for evaluation. Patient's last known well was around 10 AM and was outside the window for thrombolytics at time of ER presentation and formal NIHSS had returned to 0. Jayla seen at the bedside. She reports she feels 99% back to normal and that the 1% not normal is mostly her being nervous as she is relatively healthy and has not had major medical problems up till now. She denies prior history of stroke, [place], heart disease, blood clots. She has a history of hypertension well- controlled although notes her home cuff does not work well when checked in office or at [facility] she averages around 130 systolic. No history of diabetes, BSG here is 219 nonfasting. Renal function is normal. She reports that this morning at around 10 AM she had a sudden onset of dizziness and lightheadedness, felt a little bit of a spinning motion and off balance. No hearing change. No chest pain, chest pressure. No facial droop. No expressive or receptiveAphasia and no dysarthria. She has a history of vertigo and thought this might have been similar and attempted to perform a self Radha maneuver but this did not seem to help. No nausea/vomiting/diarrhea. No extremity weakness and no numbness/tingling or sensory change Medical History: Reviewed Medications: Reviewed Surgical History: Reviewed Family history: Reviewed Allergies: Reviewed Social History: Reviewed, no tobacco or etoho Code Status:DNR/DNI Allergies Allergy/AdvReac Type Severity Reaction Status Date / Time bacitracin Allergy Unknown RED RASH Verified 02/13/23 09:29 polymyxin B Allergy Unknown RED RASH Verified 02/13/23 09:29 pads AdvReac Mild Rash Uncoded 02/13/23 09:29 Home Medications Medication Instructions Recorded Confirmed Type cholecalciferol (vitamin D3) 50 50 mcg PO DAILY 02/12/22 06/02/23 History mcg (2,000 unit) capsule levomefolate 500 mcg-niacinamide 1 tab PO DAILY 02/12/22 06/02/23 History 750 oh-mxfiwm-Bg-selen-chrom tablet (Nicotinamide (with chromium)) losartan 25 mg tablet 25 mg PO DAILY #90 tabs 02/13/23 06/02/23 Rx propylene glycol 0.6 % eye drops 1 drp ophthalmic (eye) DAILY PRN 02/13/23 06/02/23 History (Systane Balance) Dry Eye(S) Past Med/Surg History Surgical History History of endoscopy History of colonoscopy History of oral surgery History of breast lump/mass excision right Family History Mother Myocardial infarction Father Myocardial infarction Brother Myocardial infarction Denies family history of Ovarian cancer Prostate cancer Breast cancer Colorectal cancer Social History Smoking Status: Never smoker Tobacco Type: Cigarettes packs per day: 1; Second Hand Exposure: No; Do You Dip or Chew Tobacco: No; Hx Alcohol Use: Yes Alcohol type: wine and hard liquor Alcohol Intake Frequency: 4 or More x per/Week Hx Substance Use: No Preferred Language: Amharic Communication Ability: Effective marital status: / Current Living Situation: Alone current occupational status: retired How many Children do You have: 2 Feels Safe at Home: Yes Childhood Exposure to Second-Hand Smoke: No caffeine: Yes (1 cup of coffee) Dental Care, Regularly: Yes Physical Activity Frequency: 3-4 Times per Week Seatbelt Use: always Sunscreen Use: Yes Physical Exam Physical Exam: General: A&Ox3. NAD. Cooperative. HEENT: Atraumatic, normocephalic. vision/hearing grossly intact without deficit. Pulm: CTAB A&P. -wheezes, -rales, -rhonchi. Symmetrical chest rise. No increased work of breathing. No respiratory distress. Cardiac: RRR, -mrg. Radial pulses intact and symmetrical. Abdominal: Nontender, nondistended, soft. BS present. CRANIAL NERVES: II: Pupils equal and reactive, no relative afferent pupillary defect, no VF cuts III, IV, : EOM intact, no gaze preference or deviation, no nystagmus. V: normal sensation in V1, V2, and V3 segments bilaterally VII: no asymmetry, no nasolabial fold flattening VIII: normal hearing to speech IX, X: normal palatal elevation, no uvular deviation XI: 5/5 head turn and 5/5 shoulder shrug bilaterally XII: midline tongue protrusion MOTOR: RUE: 5/5 Elbow flexion/extension, 5/5 lien searcher strength, finger flexion/extens ion LUE: 5/5 Elbow flexion/extension, wrist flexi on/extension 5/5 lien searcher strength, finger flexion/extens ion RLE: 5/5 to hip flexion, ankle dorsiflexion/p lantarflexion LLE: 5/5 to hip flexion, ankle dorsiflexion/p lantarflexion SENSORY: Normal to touch in upper and lower extremities without deficit or asymmetry COORD: Normal finger to nose and heel to reza, no tremor, no dysmetria Results & Data Results & Data Vital Signs (Past 12 Hours) Vital Signs Temp Pulse Resp BP Pulse Ox O2 Del Method 06/02/23 15:00 164/110 H 06/02/23 15:00 80 13 95 Room Air 06/02/23 14:37 191/81 H 06/02/23 14:37 83 10 L 98 Room Air 06/02/23 14:00 174/95 H 06/02/23 14:00 83 9 L 06/02/23 13:57 86 23 06/02/23 13:57 189/116 H 06/02/23 13:32 74 06/02/23 13:30 75 16 97 06/02/23 13:30 201/96 H 06/02/23 13:28 77 15 97 06/02/23 13:20 Room Air 06/02/23 13:20 Room Air 06/02/23 13:20 Room Air 06/02/23 12:00 36.7 C 91 H 16 183/115 H 97 Room Air PG Care Time/CCT Total # of Minutes Spent Total Time Spent with Patient: Total time spent is greater than 50% in coordination of care (as documented) at patient's floor/unit and/or counseling patient: Coding Level of Care Code 72972 INT INP/OBS CARE 375MIN Diagnoses Acute CVA (cerebrovascular accident) I63.9 Hyperlipidemia E78.5 Hypertension I10 Elevated troponin R79.89 Hyperglycemia R73.9
[2023-06-02] MEDS ORDERED: LABETALOL HCL IV 5 MG/ML 20ML IV PRN ×2 (16:07→16:26)
[2023-06-02] MEDS ORDERED: GLUCOSE 40% GEL 15 GM TUBE PO PRN (16:18)
[2023-06-02] MEDS ORDERED: GLUCOSE 10 TAB/TUBE PO PRN (16:18)
[2023-06-02] MEDS ORDERED: CARBOHYDRATES FOR HYPOGLYCEMIA PO PRN (16:18)
[2023-06-02] MEDS ORDERED: DEXTROSE 50% 50 ML SYRINGE IV PRN (16:18)
[2023-06-02] MEDS ORDERED: GLUCAGON FOR INJ 1 MG VIAL SQ PRN (16:18)
[2023-06-02] MEDS: LABETALOL HCL IV 5 MG/ML 20ML IV STA (17:43)
--- NOTE | 2023-06-02 18:06 | XCELERA ---
[id number] \\[email or web address]\[id number]}___[id number].pdf
[2023-06-02] MEDS ORDERED: PHARMACIST DISCHARGE MED REC CONSULT PRN (18:44)
[2023-06-02] MEDS ORDERED: ACETAMINOPHEN 325 MG TAB PO PRN (18:44)
[2023-06-02] MEDS: ASPIRIN CHEW 324 MG ONE (19:33)
[2023-06-02] MEDS: ASPIRIN CHEW 324 MG PO STA (19:33)
[2023-06-02] MEDS: INSULIN ASPART PER UNIT CHARGE SC SCH (19:37)
--- OUTSIDE RECORDS SUMMARY | 2023-06-02 20:51 | External Medical Summary | Continuity of Care Document ---
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 Phone John Hernandez Primary Care Physician [phone] Encounter [facility] [id number] Date(s): 05/04/23 - 05/04/23 [facility] [address] [id number] Encounter Diagnosis History of skin cancer(Discharge Diagnosis) - 05/04/23 Seborrheic keratoses(Discharge Diagnosis) - 05/04/23 Changing skin lesion(Discharge Diagnosis) - 05/04/23 Actinic keratosis(Discharge Diagnosis) - 05/04/23 Seborrhea(Discharge Diagnosis) - 05/04/23 Discharge Disposition: Home or Self Care Attending Physician: MD Jones Sara B Allergies, Adverse Reactions, Alerts Substance Reaction Severity Status Polysporin Rash Active Assessment and Plan Extracted from: Title:Office Visit Note Author:MD Jones Sar a B Date:05/04/23 1.History of skin cancer Warning signs of skin cancer were reviewed. Sun protection reviewed. Follow-up in 6 months, sooner for any changing or growing lesions or acute concerns. I also recommended monthly self skin exams Was upcoming for basal cell on her finger 2.Seborrheic keratoses Chronic, within normal limits today 3.Changing skin lesion x3. The area was identified and time out was completed. Verbal informed consent was obtained with the patient aware of the possibility of bleeding, scarring and infection and they did elect to proceed. The site was cleansed with alcohol and anesthetized with 1% lidocaine with epinephrine. Time out was performed and scanned into the patient's chart. Tangential shave biopsy was performed, hemostasis was achieved with cautery and the area was dressed with Vaseline and a bandage. Patient was given verbal and written instructions regarding wound care. My office will be in touch with results. Call with any problems.Photograph(s) was/were taken to document location and verbal informed consent was obtained to use the LED Light Sense Camera Capture brady. 4.Actinic keratosis x3. Lesions treated with liquid nitrogen. Patient aware of possibility of infection, hypo or hyperpigmentation or scarring and did elect to proceed. They should inform me of any problems or recurrences post treatment. Care sheet given. 5.Seborrhea ACute. She tried head and shoulders and Selsun Blue without significant effect. I recommended ketoconazole shampoo which she only uses it twice a week. Also recommended fluocinonide solution once a night as needed for itching. Risks and benefits including skin thinning with chronic use were discussed. Immunizations Given and Recorded Vaccine Date Status Refusal Reason pneumococcal 13-valent vaccine 1 12/20/20 Recorded pneumococcal 13-valent vaccine 2 09/11/14 Recorded SARS-CoV-2 (COVID-19) mRNA BNT-162b2 vax 07/10/20 Recorded SARS-CoV-2 (COVID-19) mRNA BNT-162b2 vax 06/20/20 Recorded zoster vaccine, inactivated 3 02/10/20 Recorded zoster vaccine, inactivated 4 12/02/19 Recorded influenza virus vaccine, inactivated 12/23/19 Gaudencio rded tetanus/diphtheria/pertuss, acel (Tdap) 5 12/02/19 Recorded pneumococcal 23-valent vaccine 11/11/19 Given zoster vaccine live 6 12/26/06 Recorded 1Result Comment: 2021-01-21: Historical information-source unspecified 2Result Comment: 2019-11-11: Historical information-source unspecified 3Result Comment: 2020-11-15: Historical information-source unspecified 4Result Comment: 2020-11-15: Historical information-source unspecified 5Result Comment: 2020-11-15: Historical information-source unspecified 6Result Comment: 2019-11-11: Historical information-source unspecified Medications fluocinonide 0.05% topical solution Start: 05/04/23 11:52:00 EST, See Instructions, Disp# 60 mL, Refills: 1, TO red itchy scalp once a day., Pharmacy: [facility] #[id number] Start Date: 05/04/23 Status: Ordered ketoconazole 2% topical shampoo Start: 05/04/23 11:49:00 EST, See Instructions, Disp# 120 mL, Refills: 11, Shampoo at least 2 timesper week., Pharmacy: [facility] #[id number] Start Date: 05/04/23 Status: Ordered losartan 25 mg oral tablet take 1 tablet by mouth once daily Start Date: 04/03/22 Status: Ordered Nicotinamide ZCF oral tablet Start: 09/02/18 13:53:00 EDT, 1 tab, PO, Daily Start Date: 09/02/18 Status: Ordered triamcinolone 0.1% topical cream Start: 11/20/22 11:26:00 EDT, 1 appl, topical, bid, Disp# 30 g, Refills: 1, To red rash on back BIDPRN, Pharmacy: [facility] #[id number] Start Date: 11/20/22 Status: Ordered Vitamin D3 Start: 03/19/15 12:48:00, 1 tab, PO, Daily Start Date: 03/19/15 Status: Ordered Problem List Condition Confirmation Course Effective Dates Status H ealth Status Informant ACTINIC KERATOSIS Confirmed Active Asteatotic eczema Confirmed Active Skin cancer, basal cell Confirmed Active Basal cell carcinoma Confirmed Active Basal cell carcinoma, trunk Confirmed Active Basal cell carcinoma of left forearm Confirmed Active Changing skin lesion Confirmed Active Dysplastic nevus Confirmed Active History of dermatitis Confirmed Active History of skin cancer 1 Confirmed Active Hyperlipidemia Confirmed Active Hypertension Confirmed Active Inflamed seborrheic keratosis Confirmed Active Dermatitis Confirmed Active Lentigo Confirmed Active Notalgia paresthetica Confirmed Active Post menopausal problems Confirmed Active Seborrhea Confirmed Active Seborrheic keratoses Confirmed Active Sun-damaged skin Confirmed Active Pedro's disease Confirmed Active 1bcc back, chest, scc lateral canthus 2008 Diagnosis Diagnosis Type Effective Dates Health Status Clinical Service Informant History of skin cancer Discharge Diagnosis 05/04/23 Seborrheic keratoses Discharge Diagnosis 05/04/23 Actinic keratosis Discharge Diagnosis 05/04/23 Seborrhea Discharge Diagnosis 05/04/23 Changing skin lesion Discharge Diagnosis 05/04/23 Procedures Procedure Date Related Diagnosis Body Site Status Shave biopsy 1 05/04/23 Completed Shave biopsy and cauterization of skin 04/03/22 Completed Mammogram - screening 2, 3 12/05/21 Completed Mohs micrographic surgery 08/28/21 Completed Electrodesiccation with curettage 03/14/21 Completed Shave biopsy and cauterizati on of skin 4 03/06/21 Completed Procedure 5 10/17/20 Completed Procedure 6 09/26/20 Completed Shave biopsy and cauterization of skin 09/04/20 Completed Mammogram 7 12/02/19 Completed Mammogram 2019 Completed Shave biopsy and cauterisati on of skin 9 01/20/19 Completed Mohs micrographic surgery 11/01/18 Completed Mohs micrographic surgery 11/01/18 Completed Shave biopsy and cauterisation of skin 09/02/18 Completed Mohs micrographic surgery 08/17/18 Completed Shave biopsy of skin 03/02/18 Comp leted Electrodesiccation with curettage 09/24/17 Completed Excision 09/24/17 Completed Shave biopsy and cauterization of skin 09/08/17 Completed Shave biopsy 10 09/08/16 Completed Shave biopsy of skin 09/06/15 Comp leted Electrodesiccation with curettage 12/25/14 Completed Shave biopsy of skin 12/18/14 Comp leted Shave biopsy 11 03/16/14 Completed Blepharectomy Completed Bone density (bone mineral c ontent) study, 1 or more sites; dual photon absorptiometry, 1 or more sites Completed Cataract surgery 12 Compl eted Colonoscopy Completed LASIK Completed Shave biopsy of skin Comp leted Surgery 13 Completed 11.right helix 2. right neck 3. right upper chest 2COMPARISON: Comparison is made to exams dated: 12/04/2020 mammogram, 12/02/2019 mammogram, 11/29/2018 mammogram, 11/06/2017 mammogram, 10/27/2016 mammogram, and 10/25/2015 mammogram - [facility]. BREAST COMPOSITION: There are scattered areas of fibroglandular density. FINDINGS: No suspicious masses, calcifications, or areas of architectural distortion are noted in either breast. There has been no significant interval change compared to prior exams. Scattered benign-appearing calcifications are again noted bilaterally. IMPRESSION: ACR BI-RADS CATEGORY 2: BENIGN There is no mammographic evidence of malignancy. A 1 year screening mammogram is recommended.(12/06/2022) The patient will receive written notification of the results. Some breast cancers are not detected with mammography. A negative mammographic report should not delay biopsy if a clinically suggestive mass is present. 3There is no mammographic evidence of malignancy. A 1 year screening mammogram is recommended (10/06/2022) 4L shoulder R third finger L dorsal thigh/ ED&C 5root canal 6root canal 7There is no mammographic evidence of malignancy. 8Impression: ACR BI-RADS CATEGORY 2 : BENIGN There is no mammographic evidence of malignancy. A 1 year screening mammogram is recommended (12-05-2021). The patient will receive written notification of the results. 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 Occasionall itching. History of Present Illness The patient is an extremely pleasant 82-year-old female with a history of numerous basal cells. Most recently, I treated ED and C on the left lower reza BCC that recurred at pt's request-it has not recurred again, thenLeft neck anterior, left forearm right shoulder and left mid paraspinal back all BCC tx fall 2015 with scoop excision/ ED&C. Spring 2017 had recurrent BCC left arm and left neck excised with clear margins. Recurrent BCC left upper back tx Dr. Arielle alexandra 2017. BCC left nose tx [facility] summer 2017.BCC right upper back treated with ED and C fall 2018. Has a history of some contact dermatitis in the vulva. We think it was to her pads. Itsmostly poise she needs to avoid. [1] Physical Exam Gen: Well appearing patient, no acute distress. Alert and oriented x3. Good mood. Skin examination completed of face, eyelids, scalp, hair, lips, ears, neck, chest, back, abdomen,upper and lower extremities bilaterally including hands, feet, fingers and toes, fingernails and toenails, pt declined bra areabuttocks and groin. The patient has a 4 mm ulcerated patch on the right helix. She has a 7 mm scaly plaque on the right neck. She has a 8 mm red patch on the right upper chest. She has numerous lentigo's and seborrheic keratoses. She has actinic keratoses on the central chin and the left neck and the right central neck. No evidence of recurrent skin cancer. No neck supraclavicular posterior occipital or axillary lymphadenopathy. Some scaling consistent with seborrhea on her central scalp. Assessment/Plan 1.History of skin cancer Warning signs of skin cancer were reviewed. Sun protection reviewed. Follow-up in 6 months, sooner for any changing or growing lesions or acute concerns. I also recommended monthly self skin exams Was upcoming for basal cell on her finger 2.Seborrheic keratoses Chronic, within normal limits today 3.Changing skin lesion x3. The area was identified and time out was completed. Verbal informed consent was obtained with thepatient aware of the possibility of bleeding, scarring and infection and they did elect to proceed.The site was cleansed with alcohol and anesthetized with 1% lidocaine with epinephrine. Time out was performed and scanned into the patient's chart. Tangential shave biopsy was performed, hemostasis was achieved with cautery and the area was dressed with Vaseline and a bandage. Patient was given verbal and written instructions regarding wound care. My office will be in touch with results. Call with any problems.Photograph(s) was/were taken to document location and verbal informed consent was obtained to use the LED Light Sense Camera Capture brady. 4.Actinic keratosis x3. Lesions treated with liquid nitrogen. Patient aware of possibility of infection, hypo or hyperpigmentation or scarring and did elect to proceed. They should inform me of any problems orrecurrences post treatment. Care sheet given. 5.Seborrhea ACute. She tried head and shoulders and Selsun Blue without significant effect. I recommended ketoconazole shampoo which she only uses it twice a week. Also recommended fluocinonide solution once a night as needed for itching. Risks and benefits including skin thinning with chronic use were discussed. Problem List/Past Medical History Ongoing ACTINIC KERATOSIS Asteatotic eczema Basal cell carcinoma Basal cell carcinoma of left forearm Basal cell carcinoma, trunk Changing skin lesion Dermatitis Dysplastic nevus Pedro's disease History of dermatitis History of skin cancer Hyperlipidemia Hypertension Inflamed seborrheic keratosis Lentigo Notalgia paresthetica Post menopausal problems Seborrhea Seborrheic keratoses Skin cancer, basal cell Sun-damaged skin Historical Neoplasm of uncertain behavior of skin Procedure/Surgical History Shave biopsy and cauterization of skin (04/03/2022)Mammogram - screening (12/05/2021)Mohs micrographic surgery (08/28/2021)Electrodesiccation with curettage (03/14/2021)Shave biopsy and cauterization of skin (03/06/2021)Procedure (10/17/2020)Procedure (09/26/2020)Shave biopsy and cauterization of skin (09/04/2020)Mammogram (12/02/2019)Mammogram (2019)Shave biopsy and cauterisation of skin (01/20/2019)Mohs micrographic surgery (11/01/2018)Mohs micrographic surgery (11/01/2018)Shave biopsy and cauterisation of skin (09/02/2018)Mohs micrographic surgery (08/17/2018)Shave biopsy of skin (03/02/2018)Electrodesiccation with curettage (09/24/2017)Excision (09/24/2017)Shave biopsy and cauterization of skin (09/08/2017)Shave biopsy (09/08/2016)Shave biopsy of skin (09/06/2015)Electrodesiccation with curettage (12/25/2014)Shave biopsy of skin (12/18/2014)Shave biopsy (03/16/2014)Bone density (bone mineral content) study,1 or more sites; dual photon absorptiometry, 1 or more sitesCataract surgeryLASIKColonoscopyBlepharectomySurgeryShave biopsy of skin Medications cholecalciferol(Vitamin D3), 1 tab, PO, Daily fluocinonide topical(fluocinonide 0.05% topical solution), See Instructions, 1 refills ketoconazole topical(ketoconazole 2% topical shampoo), See Instructions, 11 refills losartan(losartan 25 mg oral tablet) multivitamin with minerals(Nicotinamide ZCF oral tablet), 1 tab, PO, Daily triamcinolone topical(triamcinolone 0.1% topical cream), 1 appl, topical, bid, 1 refills Allergies PolysporinRash Social History Smoking Status Former Smoker, quit > 1 yr Alcohol - Low Risk Tobacco - Denies Tobacco Use Family History Heart attack: Mother and Brother. Heart disease: Mother and Brother. Heart failure: Father. Health Status Family Member(s) Immunizations Vaccine Date Status pneumococcal 13-valent vaccine 12/20/2020 Recorded Comments : 2021-01-21: Historical information-source unspecified SARS-CoV-2 (COVID-19) mRNA BNT-162b2 vax 07/10/2020 Recorded SARS-CoV-2 (COVID-19) mRNA BNT-162b2 vax 06/20/2020 Recorded zoster vaccine, inactivated 02/10/2020 Recorded Comments : 2020-11-15: Historical information-source unspecified influenza virus vaccine, inactivated 12/23/2019 Recorded zoster vaccine, inactivated 12/02/2019 Recorded Comments : 2020-11-15: Historical information-source unspecified tetanus/diphtheria/pertuss, acel (Tdap) 12/02/2019 Recorded Comments : 2020-11-15: Historical information-source unspecified pneumococcal 23-valent vaccine 11/11/2019 Given pneumococcal 13-valent vaccine 09/11/2014 Recorded Comments : 2019-11-11: Historical information-source unspecified zoster vaccine live 12/26/2006 Recorded Comments : 2019-11-11: Historical information-source unspecified Recommendations Health Maintenance Pending(in the next year) OverDue Medicare Annual Wellness Visit due11/15/21and every 1year Body Mass Index due09/20/22and every day Adult Influenza Vaccine due10/24/22and every 1year Due Adult COVID-19 Vaccination due05/04/23Unknown Frequency Adult Social Determinants of Health Screening due05/04/23Unknown Frequency Satisfied(in the past 1 year) There are no satisfied recommendations within the defined date range Images 2023-05-04 11:47:47 2023-05-04 11:47:54 2023-05-04 11:48:01 2023-05-04 11:48:09 2023-05-04 11:48:17 [1]Office Visit Note; MD Karen, Una Aguero 11/20/2022 11:37 EDT Electronic Signature on File Electronically Reviewed/Signed by: Una Jones MD Author Signature Dt/Tm:05/04/2023 11:59 AM Department of Dermatology [facility] Patient Care team information Care Team Related Persons Name: MARYLOU ALEMAN Address: [address] [phone]
--- NOTE | 2023-06-03 07:25 | Magnetic Resonance Report ---
Brain MRI WITHOUT CONTRAST HISTORY: Dizziness. Stroke. TECHNIQUE: Multiplanar multisequence MRI of the brain was performed without the use of contrast. COMPARISON STUDY: Head CTA 06/02/2023. FINDINGS: There is no mass, hematoma, midline shift, or acute infarct. The paranasal sinuses are anh r. The mastoid air cells are clear. The ventricles and sulci demonstrate mild age-related involutiona l changes. Scattered foci of T2 hyperintensity seen within the periventricular and subcortical white matter are nonspecific but suggestive of moderate microvascular ischemic changes. The major vascular flow voids at the skull base are well-maintained. Prior bilateral replacement. IMPRESSION: No acute intracranial abnormality. Scattered foci of T2 hyperintensity seen within the periventricula r and subcortical white matter are nonspecific but favor moderate microvascular ischemic change. ACT 112: Negative or not required by law. Electronically signed by: Darrin Mc M.D. 06/03/2023 7:23 AM
[2023-06-03 07:43] LABS: Basophils # (auto) 0.03 K/uL (0.00-0.20); Basophils % (auto) 0.5 %; Eosinophils # (auto) 0.22 K/uL (0.00-0.50); Eosinophils % (auto) 3.9 %; Hematocrit (blood only) 40.1 % (37.0-47.0); Hemoglobin 13.7 g/dl (12.0-16.0); Immature Granulocytes # (auto) 0.01 K/uL (0.01-0.20); Immature Granulocytes % (auto) 0.2 %; Lymphocytes # (auto) 2.15 K/uL (1.20-3.40); Lymphocytes % (auto) 37.7 %; Mean Corpuscular Hemoglobin 31.6 pg (25.0-34.0); Mean Corpuscular Hgb Conc 34.2 g/dL (32.0-36.0); Mean Corpuscular Volume 92.6 fL (80.0-100.0); Mean Platelet Volume 9.1 fL (9.4-12.4); Monocytes % (auto) 8.8 %; Neutrophils # (auto) 2.79 K/uL (1.40-6.50); Neutrophils % (auto) 48.9 %; Platelet Count 311 K/uL (130-400); RDW Coefficient of Variation 12.7 % (11.5-14.5); RDW Standard Deviation 43.2 fL (36.4-46.3); Red Blood Count 4.33 M/uL (4.20-5.40)
[2023-06-03 07:58] LABS: Estimated Average Glucose 103 mg/dl; Hemoglobin A1C 5.2 % (4.5-5.6)
[2023-06-03 08:10] LABS: Calcium 8.9 mg/dl (8.6-10.3); Chol HDL Ratio 2.6 (0-5); Creatinine Clr Calc Pharmacy 63.5 ml/min; Est GFR (Non-African American) 83.7 ml/min; Magnesium 1.8 mg/dl (1.7-2.4); Potassium 4.1 mmol/L (3.5-5.1)
[2023-06-03] MEDS: ATORVASTATIN 40 MG TAB PO SCH (08:22)
[2023-06-03] MEDS: ASPIRIN 81 MG ECTAB PO SCH (08:22)
[2023-06-03] MEDS: LOSARTAN POTASSIUM 25 MG TAB PO SCH (09:14)
--- NOTE | 2023-06-03 09:51 | Pharmacy Report ---
- Date of Service June 03, 2023 - Pharmacy CVA/TIA Medication Review Medications to Prevent Stroke handout has been added to the patients discharge packet. Antiplatelet(s) * aspirin 81 mg PO daily Cholesterol * High intensity statin: atorvastatin 40 mg daily DVT Prophylaxis * Enoxaparin SQ Therapeutic Anticoagulation * No history of Afib/Aflutter noted Type 2 Diabetes * Patient does not have T2DM
[2023-06-03 11:29] VITALS: BP 147/75; PULSE 77; RESP 18; TEMP 98.6; O2SAT 91
[2023-06-03] MEDS: ENOXAPARIN INJ 40 MG/0.4 ML SYR SQ SCH (12:16)
--- NOTE | 2023-06-03 12:50 | Discharge Summary ---
Date of Service June 03, 2023 Admission HPI Per Admitting Provider And is an 83-year-old female with a past medical history of hypertension, hyperlipidemia who presents with dizziness which has improved at time of ER assessment although remain with a vague feeling of being 'off'. NIHSS 0 at assessment. She underwent a CThead and CTA of the head and neck which revealed a mid P2 right CAMERA CONTROL OPERATOR segment occlusion suspected acute right CAMERA CONTROL OPERATOR territory CVA. Telestroke at [facility] was consulted for evaluation. Patient's last known well was around 10 AM and was outside the window for thrombolytics at time of ER presentation and formal NIHSS had returned to 0. Jayla seen at the bedside. She reports she feels 99% back to normal and that the 1% not normal is mostly her being nervous as she is relatively healthy and has not had major medical problems up till now. She denies prior history of stroke, ND, heart disease, blood clots. She has a history of hypertension well- controlled although notes her home cuff does not work well when checked in office [facility] she averages around 130 systolic. No history of diabetes, BSG here is 219 nonfasting. Renal function is normal. She reports that this morning at around 10 AM she had a sudden onset of dizziness and lightheadedness, felt a little bit of a spinning motion and off balance. No hearing change. No chest pain, chest pressure. No facial droop. No expressive or receptiveAphasia and no dysarthria. She has a history of v ertigo and thought this might have been similar and attempted to perform a self Radha maneuver but this did not seem to help. No nausea/vomiting/diarrhea. No extremity weakness and no numbness/tingling or sensory change Medical History: Reviewed Medications: Reviewed Surgical History: Reviewed Family history: Reviewed Allergies: Reviewed Social History: Reviewed, no tobacco or etoho Code Status:DNR/DNI Principal Diagnosis Suspected acute labyrinthitis, troponin elevation without acute coronary syndrome Discharge Exam General-alert and oriented x3, no fever, no chills HEENT-head atraumatic and normocephalic, TMs intact bilaterally, pupils equal and reactive to light, extraocular muscles intact Neck-no lymphadenopathy or thyromegaly, trachea midline Chest-clear to auscultation percussion. No rales, wheezing or rhonchi Cardiac-regular rate and rhythm, normal S1 and S2, systolic aortic valve murmur Abdomen-normal bowel sounds, nontender, no hepatosplenomegaly Extremities-no cyanosis, clubbing, or edema Neuro-cranial nerves II through XII intact, motor and sensory function within normal limits, strength symmetrical, no focal deficits Psych-normal affect, normal mood Discharge Data Allergies Allergy/AdvReac Type Severity Reaction Status Date / Time simvastatin [From Zocor] Allergy Intermediate Unknown Unverified 06/03/23 10:04 bacitracin Allergy Unknown RED RASH Verified 02/13/23 09:29 polymyxin B Allergy Unknown RED RASH Verified 02/13/23 09:29 pads AdvReac Mild Rash Uncoded 02/13/23 09:29 Consultations 06/02/23 15:12 ED Decision to Admit Stat Ordered Studies 06/02/23 13:29 CT angio head w con Stat CT angio neck with con Stat CT head/brain wo con Stat 06/02/23 18:44 MR brain wo con Routine Hospital Course (1) Acute CVA (cerebrovascular accident): Ruled out. I suspect her symptoms were transient acute labyrinthitis. Brain MRI scan negative for CVA. She has a statin allergy. She does agree to take aspirin 81 mg daily. Losartan has been restarted. 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 Will defer treatment to PCP (3) Hypertension: Losartan held on admission but has been restarted and will continue at discharge (4) Elevated troponin: No evidence of acute coronary syndrome. Cardiac echo reveals inferior wall akinesis with estimated ejection fraction 50%. Left atrial enlargement and moderate MR also seen. These findings most likely are chronic. (5) Hyperglycemia: Mild on admission. No history of type 2 diabetes. Repeat fasting glucose this morning was 98. Hemoglobin A1c is normal. Plan Home today, June 03, with addition of aspirin 81 mg daily. All other medications remain the same. Total Time Total Time Spent Total Time Spent (In Minutes): 45 minutes Discharge Plan Discharge Items Patient Disposition: Home - Self-Care Reason For Visit: CAMERA CONTROL OPERATOR CVA Discharge Diagnosis: Acute labyrinthitis with vertigo Activity: Resume your previous activity Non-emergency contact: Primary Care Provider Call non-emergency contact if: your symptoms worsen Follow-up/Referrals: Musa Gutierrez CRNP [Primary Care Provider] - Diet: Regular and Heart Healthy Addtl Attending Provider Instructions: Take aspirin 81 mg daily. All other medications remain the same Pending Studies at Discharge: No Stand-Alone Forms: My [facility], Smoking Cessation, Medications to Prevent Stroke Medications and DC Order Prescriptions: New aspirin 81 mg Tablet,Delayed Release (Dr/Ec) 81 mg PO DAILY Qty: 0 0RF Continued cholecalciferol (vitamin D3) 50 mcg (2,000 unit) capsule 50 mcg PO DAILY Nicotinamide (with chromium) 500 mcg- 750 mg tablet 1 tab PO DAILY Systane Balance 0.6 % drops 1 drp ophthalmic (eye) DAILY PRN (Reason: Dry Eye(S)) losartan 25 mg tablet 25 mg PO DAILY Qty: 90 3RF Discharge Orders: Discharge Order (Routine); Ordered 06/03/23 Ordered By: Olvin Fontanez Admission Data Admit Date/Time: 06/02/23 16:07 Attending Provider: Olvin Fontanez Admit Provider: Izaiah Das Primary Care Provider: Musa Gutierrez Other Providers: Izaiah Das Coding Level of Care Code 37953 INP/OBS DISCH >30 MIN Diagnoses Acute CVA (cerebrovascular accident) I63.9 Hyperlipidemia E78.5 Hypertension I10 Elevated troponin R79.89 Hyperglycemia R73.9
[2023-06-03] MEDS ORDERED: STROKE PATIENT DISCHARGE STA (12:51)
== END 2023-06-03 13:35 | disposition home or self-care (01) | DRG 149 ==
LOC: ED 11:50 → EDINP 16:07 → SUATTDRO 16:07 → 2S 20:14